=== PATIENT | female | born 1970 | race Caucasian/White ===

== ENCOUNTER 2018-02-25 04:22 | Observation (INO) | payer OTHER ==
[~2018-02-25] VITALS: Ht 177.8 cm; Wt 105.2 kg
--- NOTE | ~2018-02-25 | PROC ---
[facility] [place] [address] [place] [address] PROCEDURE REPORT Name: JERMAINE ESCOBAR Room: [address] Tatianna Rivera#: [id number] Admission: 02/25/18 Attend Phys: Charlie Foster MD Discharge: 02/26/18 Date of : 74 Report #: [id number] THIS REPORT FOR: //name// For GI report, please see the Provation report in Perceptive 7 content. By: 0645Medical Records Staff ZAKIA /ANGUS
[2018-02-25 04:27] VITALS: BP 130/85
[2018-02-25] MEDS ORDERED: VITAMIN D5000 UNIT PO (04:31)
[2018-02-25] MEDS ORDERED: ARMOUR THYROID180 M1 PO (04:31)
[2018-02-25] MEDS ORDERED: ADDERALL 20 MG20 MG PO (04:32)
[2018-02-25] MEDS ORDERED: ARMOUR THYROID30 M1 PO (04:32)
[2018-02-25 04:49] LABS: ABSOLUTE EOSINOPHILS 0.1 thou/uL (0.0-0.7); ABSOLUTE LYMPHOCYTES 2.7 thou/uL (0.8-5.3); ABSOLUTE MONOCYTES 0.5 thou/uL (0.0-1.2); ABSOLUTE NEUTROPHILS 3.2 thou/uL (1.6-8.1); BASOPHILS 0.3 %; EOSINOPHILS 1.4 %; HEMOGLOBIN 15.2 gm/dL (12.0-15.0); LYMPHOCYTES 41.9 %; MCH 31.2 pg (26.0-34.0); MCHC 33.9 g/dL (28.0-37.0); MONOCYTES 7.6 %; MPV 8.4 fl. (7.2-11.1); NUCLEATED RBCS 0 /100WBC; PLATELET COUNT* 237 thou/uL (150-400); POLYS 48.8 %; RBC 4.89 mil/uL (4.20-5.00); WBC 6.5 thou/uL (4.0-11.0)
[2018-02-25 05:00] LABS: CALCIUM 9.2 mg/dL (8.5-10.1); CREATININE 0.9 mg/dL (0.6-1.3)
[2018-02-25 05:09] LABS: ALBUMIN 4.1 g/dL (3.4-5.0); TOTAL BILIRUBIN 0.4 mg/dL (<0.1-1.0)
--- NOTE | 2018-02-25 06:54 | NUR ---
PT DOES NOT WANT PAIN MEDICATION AT THIS TIME. SHE DID HAVE A UA IN ROOM. SENT TO LAB
[2018-02-25 07:06] LABS: URINE BILIRUBIN NEGATIVE (Negative); URINE BLOOD NEGATIVE (Negative); URINE CLARITY CLEAR; URINE COLOR YELLOW; URINE GLUCOSE-RANDOM NEGATIVE (Negative); URINE KETONES NEGATIVE (Negative); URINE LEUKOCYTES-REFLEX NEGATIVE (Negative); URINE NITRITE-REFLEX NEGATIVE (Negative); URINE PROTEIN NEGATIVE (Negative); URINE SPECIFIC GRAVITY <= 1.005 (1.005-1.030); URINE UROBILINOGEN 0.2 E.U./dl (0.2-1.0)
[2018-02-25 07:55] VITALS: BP 119/65
[2018-02-25 08:10] VITALS: BP 129/78
--- NOTE | 2018-02-25 08:10 | NUR ---
PATIENT ADMITTED TO ROOM 311 VIA CART FROM ER. PATIENT'S ASSESSMENT, HISTORY, AND VITALS OBTAINED CHARTED. STATES ABDOMINAL PAIN IS IMPROVED FROM BEFORE ADMIT, RATES PAIN AT A 2-3/10. SALINE LOCK PRESENT TO RIGHT AC. REFUSING SCDS. HOME MEDS RECONCILED. ORIENTED TO ROOM AND ENVIRONMENT. CALL [facility] WITHIN REACH. WILL CONTINUE WITH PLAN OF CARE.
[2018-02-25 15:59] VITALS: BP 116/65
--- NOTE | 2018-02-25 17:55 | NUR ---
PATIENT HAS BEEN A/O X 4 THIS SHIFT. HAS DENIED THE NEED FOR PAIN MEDS. IVF CONTINUE TO INFUSE. PATIENT UP AD CARYN IN ROOM. HAD PIPIDA AND THYROID ULTRASOUND COMPLETED THIS SHIFT. TO HAVE EGD ON SUNDAY, CONSENT SIGNED. HOURLY ROUNDING COMPLETED. CALL [facility]IGHT WITHIN REACH. WILL CONTINUE WITH PLAN OF CARE.
[2018-02-25 20:15] VITALS: BP 118/77
--- NOTE | 2018-02-26 05:40 | NUR ---
PATIENT HAS SLEPT MOST OF THE NIGHT, VITAL SIGNS STABLE ON ROOM AIR. HAD SOME COMPLAINTS OF PAIN AT BEGINNING OF SHIFT BUT DID NOT WANT MORPHINE, TRAMADOL ORDERED AND IT WORKED VERY WELL. PATIENT SLEPT THE REST OF THE NIGHT. UP AD CARYN IN ROOM, CALL LIGHT IS IN REACH WILL CONTINUE TO MONITOR.
[2018-02-26 06:33] VITALS: BP 118/77
[2018-02-26 06:53] VITALS: BP 118/77
[2018-02-26 08:55] VITALS: BP 112/67
--- NOTE | 2018-02-26 15:00 | NUR ---
PATIENT RETURNED FROM PACU S/P EGD. DR SULLIVAN HERE TO ASSESS PATIENT. WATER PROVIDED TO PATIENT. ORDERS BEING RECIEVED TO DISCHARGE PATIENT HOME.
--- NOTE | 2018-02-26 15:12 | NUR ---
Pt lives at home with . Pt was out of room when SW attempted to complete initial assessment. SW to continue to follow to assist with safe dc planning.
[2018-02-26 15:18] VITALS: BP 106/40
[2018-02-26] MEDS ORDERED: PROTONIX40 M1 PO (15:19)
[2018-02-26 15:41] VITALS: BP 106/40
[2018-02-26 15:58] VITALS: BP 132/66
--- NOTE | 2018-02-26 16:29 | NUR ---
PATIENT'S IV REMOVED. PATIENT GIVEN DISCHARGE INSTRUCTIONS, PRESCRIPTIONS, AND WORK RELEASE. PATIENT VERBALIZED UNDERSTANDING IN REGARDS TO FOLLOW UP APPOINTMENTS AND NEW MEDICATIONS. PATIENT DISCHARGED TO HOME WITH ALL BELONGINGS. PATIENT TAKEN TO EXIT VIA WHEELCHAIR WITH NURSING STAFF.
--- NOTE | 2018-03-04 11:22 | CON ---
[address] [address] CONSULTATION Name: JERMAINE ESCOBARN Room: [address] Tatianna Rivera#: [id number] Admission: 02/25/18 Attend Phys: Charlie Foster MD Discharge: 02/26/18 Date of : 74 Report #: [id number] THIS REPORT FOR: //name// CC: [facility]ER[facility] physician/PCP Charlie Foster DATE OF SERVICE: 02/25/2018 HISTORY OF PRESENT ILLNESS: This is a pleasant 48-year-old female, with past medical history significant for hypothyroidism and endometriosis, who is presenting with acute onset abdominal pain. The patient reports she was in her usual state of health when she noted acute onset of abdominal pain after she went to sleep last night. The patient reports the pain is located in the epigastrium and in the right upper quadrant and is sharp, associated with nausea, but no vomiting. The patient denies any fevers or chills. The patient denies any recent change in her bowel habits. The patient reports similar episodes of pain in the past, but reports they are often associated with food. The patient denies any recent weight loss. PAST MEDICAL HISTORY: As mentioned above, the patient has a history of hypothyroidism and endometriosis. PAST SURGICAL HISTORY: The patient reports she had some surgery for her endometriosis. SOCIAL HISTORY: The patient denies smoking, alcohol or recreational drug use. FAMILY HISTORY: Negative for colorectal cancer. REVIEW OF SYSTEMS: Comprehensive 10-point review of systems is negative except for what is mentioned here. PHYSICAL EXAMINATION: VITAL SIGNS: Temperature 38.4, pulse rate 63, respirations 18, blood pressure 116/65, pulse ox 99%. GENERAL: The patient is alert, awake, oriented x 3. HEENT: Pupils are equal, round, reactive to light and accommodation. Mucous membranes are moist. There is no congestion. LUNGS: Clear to auscultation bilaterally. NECK: Supple. There is no supraclavicular lymphadenopathy. CARDIOVASCULAR: Rate and rhythm regular, S1, S2 present. ABDOMEN: Soft. There is no distention, no guarding. Rosario sign is negative. EXTREMITIES: Warm and well perfused. There is no edema. NEUROLOGIC: There are no focal neurological deficits. SKIN: [place] [address] CONSULTATION Name: JERMAINE ESCOBAR Room: [address] Nicole#: [id number] Admission: 02/25/18 Attend Phys: Charlie Foster MD Discharge: 02/26/18 Date of : 74 Report #: [id number] LABORATORY DATA: Hemoglobin 15.2, hematocrit 45, WBC count 6.5, platelet count 237. Sodium 137, potassium 4, chloride 104, bicarbonate 28, BUN 11, creatinine 0.9, total bilirubin 0.4, AST 21, ALT 31, alkaline phosphatase 74. Abdomen CT, no acute process, small liver lesions consistent with cysts. ASSESSMENT AND PLAN: This is a very pleasant 48-year-old female who is presenting with acute onset abdominal pain located in the right upper quadrant radiating to the back. Previously, the patient reports the pain may have been associated with food, but now, the pain presented in the middle of the night. I would recommend getting a HIDA scan to evaluate gallbladder function and will proceed with EGD to rule out any mucosal disease, which can contribute to her symptoms. <ELECTRONICALLY SIGNED> By: Kyle Mensah MD 03/04/18 1122 [id number] [id number] Mensah MD /nt
--- NOTE | 2018-03-06 07:06 | PATH ---
[address] [address] PATHOLOGY RPT PROCEDURE Name: SHAWNJERMAINE SAJI Room: [address] Tatianna Rivera#: [id number] Admission: 02/25/18 Date of : 74 Discharge: 02/26/18 Report #: [id number] Path Case #: [id number] [facility] Accession Number: [id number] . 01 Material submitted: . GASTRIC BIOPSY R/O H. PYLORI . 01 Clinician provided ICD-10: R10.9 . 01 Clinical history: . None provided . 02 Diagnosis: Gastric biopsy: - Mild nonspecific chronic and active gastritis, negative for Helicobacter pylori organisms, granulomas and dysplasia. . Special stain: H. pylori immuno . (CHELA:elizabeth; 02/27/2018) MBJeff/02/27/2018 . 02 Electronically signed: . Raf Camarillo MD, Pathologist NPI- [id number] . 01 Gross description: . Received in formalin labeled "Jermaine Escobar, gastric biopsy, rule out H. pylori," are 5 segments of sanchez soft tissue measuring 1.6 x 0.9 x 0.3 cm in aggregate dimensions and ranging from 0.1 to 0.5 cm in maximum dimension. The specimen is submitted entirely in cassette A1. (TSD; 02/26/2018) TOB/TOB . 02 Pathologist provided ICD-10: K29.50 . 02 CPT . 628298, [id number] Specimen Comment: A courtesy copy of this report has been sent to Specimen Comment: [phone], . Specimen Comment: Report sent to / DR OLIVER Performed at: [address] [id number] MD Momo Espinoza MD Phone: [phone] Performed at: [address] [address] PATHOLOGY RPT PROCEDURE Name: JERMAINE ESCOBAR SAJI Room: [address] Tatianna Rivera#: [id number] Admission: 02/25/18 Date of : 74 Discharge: 02/26/18 Report #: [id number] Path Case #: [id number] [address] [id number] MD Raf Camarillo MD Phone: [phone]
== END 2018-02-26 16:38 | disposition home or self-care (01) ==
LOC: M.ERS 04:22 → M.3W 07:08 → M.TBA-ER 07:08 → M.3W 08:36
PROVIDERS: Emergency Medicine
DX: K80.51 Calculus of bile duct without cholangitis or cholecystitis with obstruction (principal); R10.84 Generalized abdominal pain; N80.9 Endometriosis, unspecified; K25.9 Gastric ulcer, unspecified as acute or chronic, without hemorrhage or perforation; E03.9 Hypothyroidism, unspecified; K76.0 Fatty (change of) liver, not elsewhere classified; Z86.010 Personal history of colon polyps; Z90.710 Acquired absence of both cervix and uterus; Z90.49 Acquired absence of other specified parts of digestive tract